=== PATIENT | female | born 1995 | race Two or more races ===

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

== ENCOUNTER → 2017-03-05 | Outpatient (CLI) | payer BC, MEDICAID ==
[2017-03-05 12:06] LABS: ESTRADIOL < 19.0 PG/ML; FOLLICLE STIMULATING HORMONE 7.4 mIU/mL
[2017-03-05 12:13] LABS: ANION GAP 7 MEQ/L (8-16); BLOOD UREA NITROGEN 14 MG/DL (7-18); CALCIUM LEVEL 9.3 MG/DL (8.5-10.1); CARBON DIOXIDE LEVEL 29 MEQ/L (21-32); CHLORIDE LEVEL 101 MEQ/L (98-107); CREATININE FOR GFR 0.55 MG/DL (0.55-1.02); GLUCOSE, FASTING 79 MG/DL (70-105); POTASSIUM SERUM 4.4 MEQ/L (3.5-5.1); SODIUM LEVEL 137 MEQ/L (136-145)
== END ==
LOC: M LABDRAW1 08:36
PROVIDERS: ATTEND Medical Genetics Clinical Genetics (M.D.)
DX: E23.0 Hypopituitarism (principal); E23.6 Other disorders of pituitary gland; E28.39 Other primary ovarian failure; Q87.1 Congenital malformation syndromes predominantly associated with short stature

== ENCOUNTER → 2017-03-05 | Outpatient (REF) | payer BC, MEDICAID | LOC: M SFHCLERA 14:24 | PROVIDERS: ATTEND Nurse Practitioner Family | DX: R53.81 Other malaise (principal) ==

== ENCOUNTER → 2018-05-02 | Outpatient (CLI) | payer MEDICARE, MEDICAID ==
[2018-05-02 14:16] LABS: BLOOD UREA NITROGEN 8 MG/DL (7-18); CALCIUM LEVEL 9.9 MG/DL (8.5-10.1); CARBON DIOXIDE LEVEL 26 MEQ/L (21-32); CHLORIDE LEVEL 101 MEQ/L (98-107); CREATININE FOR GFR 0.58 MG/DL (0.55-1.30); FREE T4 1.12 NG/DL (0.76-1.46); GLOMERULAR FILTRATION RATE > 60.0 (>60); GLUCOSE, FASTING 79 MG/DL (70-100); SODIUM LEVEL 138 MEQ/L (136-145)
[2018-05-02 14:24] LABS: HEMOGLOBIN A1c 5.3 %
== END ==
LOC: M LAB 12:41
PROVIDERS: ATTEND Medical Genetics Clinical Genetics (M.D.)
DX: Q87.1 Congenital malformation syndromes predominantly associated with short stature (principal); E23.0 Hypopituitarism

== ENCOUNTER → 2018-10-19 | Outpatient (REF) | payer MEDICARE, MEDICAID | LOC: M LAB REF 18:37 | PROVIDERS: ATTEND Physician Assistant | DX: N39.0 Urinary tract infection, site not specified (principal) ==

== ENCOUNTER → 2019-05-25 | Outpatient (CLI) | payer MEDICARE, BC, MEDICAID ==
[2019-05-25 14:24] LABS: BASO % 0.6 % (0.0-1.0); EOS # 0.1 10^3/uL (0.0-0.5); EOS % 1.6 % (0.0-3.0); HEMATOCRIT 40.2 % (36.0-47.0); HEMOGLOBIN 12.2 g/dl (12.0-15.5); LYMPH # 2.6 10^3/uL (1.5-5.0); LYMPH % 40.3 % (24.0-44.0); MEAN CORPUSCULAR HEMOGLOBIN 28.8 pg (27.0-33.0); MEAN CORPUSCULAR HGB CONC 30.3 g/dl (32.0-36.5); MEAN CORPUSCULAR VOLUME 94.8 fl (80.0-96.0); MONO # 0.4 10^3/uL (0.0-0.8); MONO % 6.8 % (0.0-5.0); NEUTROPHILS # 3.2 10^3/uL (1.5-8.5); NEUTROPHILS % 50.4 % (36.0-66.0); PLATELET COUNT, AUTOMATED 201 10^3/uL (150-450); RED BLOOD COUNT 4.24 10^6/uL (4.00-5.40); WHITE BLOOD COUNT 6.4 10^3/uL (4.0-10.0)
[2019-05-25 15:06] LABS: ALBUMIN 3.8 GM/DL (3.2-5.2); ALT/SGPT 22 U/L (12-78); BILIRUBIN,TOTAL 0.3 MG/DL (0.2-1.0); BLOOD UREA NITROGEN 8 MG/DL (7-18); CALCIUM LEVEL 8.8 MG/DL (8.5-10.1); CARBON DIOXIDE LEVEL 27 MEQ/L (21-32); CHLORIDE LEVEL 104 MEQ/L (98-107); CREATININE FOR GFR 0.49 MG/DL (0.55-1.30); FREE T4 0.92 NG/DL (0.76-1.46); GLOMERULAR FILTRATION RATE > 60.0 (>60); GLUCOSE, FASTING 79 MG/DL (70-100); POTASSIUM SERUM 4.4 MEQ/L (3.5-5.1); SODIUM LEVEL 137 MEQ/L (136-145); THYROXINE (T4) 8.7 UG/DL (4.5-12.0); TOTAL PROTEIN 7.5 GM/DL (6.4-8.2)
[2019-05-26 10:46] LABS: TOTAL 25(OH) VITAMIN D 30.3 NG/ML (30.0-100.0)
[2019-05-26 13:11] LABS: LUTEINIZING HORMONE 4.1 mIU/mL
[2019-05-30 00:06] LABS: INS GRTH FACTOR BINDING PROT 3 3948 ug/L (2855-6559); INSULIN LEVEL 5.7 uIU/mL (2.6-24.9); SEX HORMONE BINDING GLOBULIN 14.4 nmol/L (24.6-122.0)
== END ==
LOC: M LAB 12:05
PROVIDERS: ATTEND Medical Genetics Clinical Genetics (M.D.)
DX: Q87.19 Other congenital malformation syndromes predominantly associated with short stature (principal); E23.0 Hypopituitarism

== ENCOUNTER → 2020-02-29 | Outpatient (CLI) | payer MEDICARE, MEDICAID ==
--- NOTE | 2020-02-29 14:11 | DEXA ---
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 COMPARISON: November 07, 2018 and September 04, 2014.. TECHNIQUE: Bone density was measured using dual-energy x-ray absorptionmetry (DEXA). FINDINGS: AP SPINE L1-L4 BMD 1.061 g/cm2 Young Adult T-Score -1.1 Age Matched Z-Score -1.1. LT FEMUR, TOTAL BMD 1.081 g/cm2 Young Adult T-Score 0.6 Age Matched Z-Score 0.6. LT NECK BMD -1.089 g/cm2 Young Adult T-Score 0.4 Age Matched Z-Score 0.3. RT FEMUR, TOTAL BMD 1.078 g/cm2 Young Adult T-Score 0.6 Age Matched Z-Score 0.5. RT NECK BMD 1.078 g/cm2 Young Adult T-Score 0.3 Age Matched Z-Score 0.2. IMPRESSION: There is low bone density of the spine. There is normal bone density of the left hip. There is normal bone density of the right hip. The density of the spine has decreased 1.7% since the initial exam on September 04, 2014. The density of the spine decreased 2.9% since most recent exam on November 07, 2018. The density of the left hip has increased 0.7% since initial exam on September 04, 2014. The density of the left hip has decreased 0.1% since most recent exam on November 07, 2018. The density of the right hip has decrease 3.4% since the initial exam on September 04, 2014. The density of the right hip has decreased 2.1% since the most recent exam on November 07, 2018. FOLLOW-UP: Recommendation for the next bone density exam: 2 years. <Electronically signed by Delon Elizalde > 02/29/20 [id number]
== END ==
LOC: M WHC 10:31
PROVIDERS: ATTEND Medical Genetics Clinical Genetics (M.D.)
DX: Q87.11 Prader-Willi syndrome (principal); E55.9 Vitamin D deficiency, unspecified; E23.0 Hypopituitarism; M85.88 Other specified disorders of bone density and structure, other site

== ENCOUNTER → 2020-06-12 | Outpatient (CLI) | payer MEDICARE, MEDICAID ==
[2020-06-12 10:21] LABS: BASO % 0.6 % (0.0-1.0); EOS # 0.1 10^3/uL (0.0-0.5); EOS % 1.1 % (0.0-3.0); HEMOGLOBIN 11.8 g/dl (12.0-15.5); LYMPH # 1.8 10^3/uL (1.5-5.0); LYMPH % 34.6 % (24.0-44.0); MEAN CORPUSCULAR HEMOGLOBIN 29.2 pg (27.0-33.0); MEAN CORPUSCULAR HGB CONC 30.3 g/dl (32.0-36.5); MEAN CORPUSCULAR VOLUME 96.5 fl (80.0-96.0); MONO # 0.4 10^3/uL (0.0-0.8); MONO % 7.2 % (2.0-8.0); NEUTROPHILS % 56.1 % (36.0-66.0); PLATELET COUNT, AUTOMATED 255 10^3/uL (150-450); RED BLOOD COUNT 4.04 10^6/uL (4.00-5.40); WHITE BLOOD COUNT 5.3 10^3/uL (4.0-10.0)
[2020-06-12 10:49] LABS: FREE T4 1.07 NG/DL (0.76-1.46); THYROID STIMULATING HORMONE 2.11 uIU/ML (0.358-3.740); THYROXINE (T4) 10.8 UG/DL (4.5-12.0)
[2020-06-12 10:50] LABS: CORTISOL AM 10.1 UG/DL (4.3-22.4); LUTEINIZING HORMONE 1.5 mIU/mL
[2020-06-17 14:11] LABS: ADRENOCORTICOTROPHIC HORMONE 12.8 pg/mL (7.2-63.3); INS GRTH FACTOR BINDING PROT 3 4051 ug/L (2855-6559); INSULIN LEVEL 2.3 uIU/mL (2.6-24.9); SEX HORMONE BINDING GLOBULIN 45.4 nmol/L (24.6-122.0); SOMATOMEDIN-C INSULIN GROWTH 256 ng/mL (101-347); TESTOSTERONE FREE (DIRECT) 0.4 pg/mL (0.0-4.2)
== END ==
LOC: M LAB 09:24
PROVIDERS: ATTEND Medical Genetics Clinical Genetics (M.D.)
DX: Q87.11 Prader-Willi syndrome (principal); E23.0 Hypopituitarism; E55.9 Vitamin D deficiency, unspecified
CPT/HCPCS: 36415; 82024; 82533; 82670; 82679; 83001; 83002; 83519; 83525; 84270; 84305; 84402; 84403; 84439; 84443; 85025; G0463

== ENCOUNTER → 2020-06-24 | Outpatient (CLI) | payer MEDICARE, MEDICAID ==
--- NOTE | 2020-06-24 09:25 | REP ---
INDICATION: N63.10 RT BREAST LUMP 10:00. COMPARISON: None. TECHNIQUE: Targeted right breast sonography is performed in the area the patient's palpable lump 10 o'clock position. FINDINGS: Heterogeneous fibroglandular background echotexture is seen. No cyst, mass, architectural distortion or other suspicious abnormality is seen. IMPRESSION: BI-RADS category 1-findings. Clinical follow-up is advised. This negative report should not dissuade 1 from biopsy of a palpable lump depending on his clinical characteristics. This patient's estimated Tyrer-Cuzick lifetime risk assessment for breast cancer is 12.2%. <Electronically signed by Delon Elizalde > 06/24/20 [id number]
== END ==
LOC: M WHC 06:59
PROVIDERS: ATTEND Nurse Practitioner Family
DX: N63.11 Unspecified lump in the right breast, upper outer quadrant (principal)

== ENCOUNTER → 2020-09-06 | Outpatient (CLI) | payer MEDICARE, MEDICAID ==
[~2020-09-06] MED LIST: PROHANCE 279.3MG/ML 15ML VIAL As Ordered ONE
--- NOTE | 2020-09-06 10:17 | REP ---
INDICATION: PHIL GARCIA. Palpable lump right breast. COMPARISON: Ultrasound 06/24/2020. TECHNIQUE: Three Lilli MRI imaging was performed with a dedicated breast coil. Axial, coronal, and sagittal T1 and T2 weighted scans were obtained with and without fat saturation in the usual fashion. The study includes dynamically acquired post gadolinium-enhanced imaging with image subtraction. Maximum intensity projection and multi planar reformation imaging is included as well. This study is interpreted with the aid of [employer], an FDA approved computer aided detection (CAD) software program, on a dedicated breast MRI workstation. The gadolinium enhancement dose is 12 mL of intravenous ProHance. FINDINGS: There is an extreme parenchymal pattern in both breasts, right breast is mildly larger than the left. No significant cystic change is seen in either breast. There is no axillary adenopathy. There is very mild background parenchymal enhancement. There is no suspicious enhancing mass or morphologic abnormality. IMPRESSION: BI-RADS category 1, negative bilateral breast MRI. No suspicious enhancing mass or morphologic abnormality. <Electronically signed by Solo Luna > 09/06/20 [id number]
== END ==
LOC: M RAD 08:20
PROVIDERS: ATTEND Surgery
DX: N63.10 Unspecified lump in the right breast, unspecified quadrant (principal)
CPT/HCPCS: A9576; C8908

== ENCOUNTER → 2020-10-22 | Outpatient (REF) | payer MEDICARE, OTHER | LOC: M WUC 19:58 | PROVIDERS: ATTEND Nurse Practitioner Family | DX: R35.0 Frequency of micturition (principal) ==

== ENCOUNTER → 2020-12-26 | Outpatient (REF) | payer MEDICARE, MEDICAID | LOC: M LAB REF 17:19 | PROVIDERS: ATTEND Physician Assistant | DX: B35.1 Tinea unguium (principal) ==

== ENCOUNTER → 2022-02-06 | Outpatient (REF) | payer MEDICARE, MEDICAID | LOC: M LAB REF 12:29 | PROVIDERS: ATTEND Student in an Organized Health Care Education/Training Program | DX: R30.0 Dysuria (principal) ==

== ENCOUNTER → 2022-06-25 | Outpatient (CLI) | payer MEDICARE, MEDICAID ==
[2022-06-25 14:19] LABS: BASO % 0.3 % (0.0-1.0); EOS # 0.1 10^3/uL (0.0-0.5); EOS % 2.1 % (0.0-3.0); HEMOGLOBIN 13.6 g/dl (12.0-15.5); LYMPH # 1.2 10^3/uL (1.5-5.0); LYMPH % 30.4 % (24.0-44.0); MEAN CORPUSCULAR HEMOGLOBIN 30.6 pg (27.0-33.0); MEAN CORPUSCULAR HGB CONC 30.9 g/dl (32.0-36.5); MEAN CORPUSCULAR VOLUME 99.1 fl (80.0-96.0); MONO # 0.4 10^3/uL (0.0-0.8); NEUTROPHILS # 2.1 10^3/uL (1.5-8.5); NEUTROPHILS % 55.7 % (36.0-66.0); PLATELET COUNT, AUTOMATED 277 10^3/uL (150-450); RED BLOOD COUNT 4.44 10^6/uL (4.00-5.40); WHITE BLOOD COUNT 3.8 10^3/uL (4.0-10.0)
[2022-06-25 14:41] LABS: CORTISOL AM 14.1 UG/DL (4.3-22.4)
[2022-06-25 14:42] LABS: FREE T4 1.09 NG/DL (0.89-1.76); THYROID STIMULATING HORMONE 2.279 uIU/ML (0.55-4.78); THYROXINE (T4) 16.1 UG/DL (4.5-10.9)
[2022-06-25 14:43] LABS: IRON (FE) 17 UG/DL (50-170); PERCENT SATURATION 4.3 % (13.2-45.0); TOTAL IRON BINDING CAPACITY 398 UG/DL (250-425)
[2022-06-25 14:44] LABS: FOLLICLE STIMULATING HORMONE 3.3 mIU/ML; LUTEINIZING HORMONE 2.1 mIU/ML
[2022-06-25 14:45] LABS: ESTRADIOL < 19.0 PG/ML
[2022-06-25 14:46] LABS: TOTAL 25(OH) VITAMIN D 59.5 NG/ML (20.0-100.0)
[2022-06-30 06:08] LABS: DEHYDROEPIANDROSTERONE UNCONJ 52 ng/dL (31-701); ESTRONE SERUM 43 pg/mL (27-231); INS GRTH FACTOR BINDING PROT 3 3408 ug/L (2855-6559); SEX HORMONE BINDING GLOBULIN 99.8 nmol/L (24.6-122.0); SOMATOMEDIN-C INSULIN GROWTH 243 ng/mL (101-347); TESTOSTERONE FREE (DIRECT) 0.6 pg/mL (0.0-4.2)
== END ==
LOC: M PLALAB 09:56
PROVIDERS: ATTEND Medical Genetics Clinical Genetics (M.D.)
DX: E28.39 Other primary ovarian failure (principal); Q87.11 Prader-Willi syndrome

== ENCOUNTER → 2022-06-25 | Outpatient (CLI) | payer MEDICARE, MEDICAID | LOC: M WHC 09:11 | PROVIDERS: ATTEND Medical Genetics Clinical Genetics (M.D.) | DX: Q87.11 Prader-Willi syndrome (principal); E23.0 Hypopituitarism; E28.39 Other primary ovarian failure ==

== ENCOUNTER 2022-11-13 07:14 | Day surgery (SDC) | payer MEDICARE, MEDICAID ==
[~2022-11-13] VITALS: Ht 167.6 cm; Wt 59.8 kg
[~2022-11-13 07:14] MED LIST changes: +AMPICILLIN SOD/SULBACTAM SOD 3 GM in D5W MINI-BAG PLUS 100 ML IV ONE; +D3 S1CAP3 PO; +ELINTAB PO; +FLUC150T9 PO; +IRON1TAB2 PO; +MIRA3350 PO; -PROHANCE 279.3MG/ML 15ML VIAL As Ordered ONE; +[UNRECOGNIZED DRUG - CODE] SC
[2022-11-13] MEDS ORDERED: LR 1,000 ML IV SCH ×2 (07:20→10:30)
[2022-11-13] MEDS ORDERED: SUGAMMADEX SODIUM 500 MG/5 ML VIAL (BRIDION) As Ordered ONE (07:54)
[2022-11-13] MEDS ORDERED: LIDOCAINE 2% 100MG/5ML SDV (FOR ANES.) As Ordered ONE (07:54)
[2022-11-13] MEDS ORDERED: propofoL 200 MG/20 ML VIAL As Ordered ONE (07:54)
[2022-11-13] MEDS ORDERED: ROCURONIUM BROMIDE 50MG/5ML VIAL As Ordered ONE (07:54)
[2022-11-13] MEDS ORDERED: ONDANSETRON 4MG 2ML VIAL As Ordered ONE (07:54)
[2022-11-13] MEDS ORDERED: fentaNYL 100 MCG/2 ML INJECTION As Ordered ONE (08:03)
[2022-11-13] MEDS ORDERED: MIDAZOLAM INJ 2MG/2ML VIAL As Ordered ONE (08:03)
[2022-11-13] MEDS ORDERED: CHLORHEXIDINE GLUCONATE 0.12 % 15ML UDC (PERIDEX ORAL RINSE) As Ordered ONE (09:10)
[2022-11-13] MEDS ORDERED: LIDOCAINE 2% W/ EPINEPHRINE 1.7 ML DENTAL INJ As Ordered ONE (09:11)
[2022-11-13] MEDS ORDERED: ACETAMINOPHEN 1000MG 100ML IV BAG As Ordered ONE (09:57)
[2022-11-13] MEDS ORDERED: oxyCODONE 5MG TAB PO PRN (10:30)
[2022-11-13] MEDS ORDERED: HYDROMORPHONE HCL 0.5 MG/ 0.5 ML SYRINGE IV PRN (10:30)
[2022-11-13] MEDS ORDERED: ONDANSETRON 4MG 2ML VIAL IV PRN (10:30)
[2022-11-13] MEDS ORDERED: fentaNYL 100 MCG/2 ML INJECTION IV PRN (10:30)
[2022-11-13 11:40] VITALS: BP 125/86; TEMP 98.1; O2SAT 93
== END 2022-11-13 12:17 | disposition home or self-care (01) ==
LOC: M SDC 07:14
PROVIDERS: ATTEND Dentist
DX: K02.9 Dental caries, unspecified (principal); D64.9 Anemia, unspecified; Q87.11 Prader-Willi syndrome; F79 Unspecified intellectual disabilities; Z88.2 Allergy status to sulfonamides; Z88.8 Allergy status to other drugs, medicaments and biological substances; Z79.899 Other long term (current) drug therapy
CPT/HCPCS: 41899; 81025; 88300; C9290; J0131; J0295; J1100; J2250; J2405; J3010

== ENCOUNTER → 2022-12-25 | Outpatient (CLI) | payer MEDICARE, MEDICAID ==
[~2022-12-25] MED LIST changes: -AMPICILLIN SOD/SULBACTAM SOD 3 GM in D5W MINI-BAG PLUS 100 ML IV ONE
[2022-12-25 14:21] LABS: BLOOD UREA NITROGEN 8 MG/DL (9-23); CARBON DIOXIDE LEVEL 27 MMOL/L (20-31); CHLORIDE LEVEL 106 MMOL/L (98-107); CREATININE FOR GFR 0.57 MG/DL (0.55-1.30); GLOMERULAR FILTRATION RATE > 60.0 (>60); GLUCOSE, FASTING 88 MG/DL (60-100); IRON (FE) 62 UG/DL (50-170); POTASSIUM SERUM 4.5 MMOL/L (3.5-5.1); SODIUM LEVEL 141 MMOL/L (136-145)
[2022-12-25 14:22] LABS: EOS # 0.1 10^3/uL (0.0-0.5); HEMATOCRIT 40.1 % (36.0-47.0); HEMOGLOBIN 12.6 g/dl (12.0-15.5); LYMPH # 1.7 10^3/uL (1.5-5.0); LYMPH % 42.1 % (24.0-44.0); MEAN CORPUSCULAR HEMOGLOBIN 31.7 pg (27.0-33.0); MEAN CORPUSCULAR HGB CONC 31.4 g/dl (32.0-36.5); MONO # 0.3 10^3/uL (0.0-0.8); MONO % 6.3 % (2.0-8.0); NEUTROPHILS # 1.9 10^3/uL (1.5-8.5); NEUTROPHILS % 48.3 % (36.0-66.0); PERCENT SATURATION 17.7 % (13.2-45.0); PLATELET COUNT, AUTOMATED 240 10^3/uL (150-450); RED BLOOD COUNT 3.97 10^6/uL (4.00-5.40); THYROID STIMULATING HORMONE 2.203 uIU/ML (0.55-4.78); THYROXINE (T4) 10.9 UG/DL (4.5-10.9); TOTAL 25(OH) VITAMIN D 56.6 NG/ML (20.0-100.0); TOTAL IRON BINDING CAPACITY 351 UG/DL (250-425); WHITE BLOOD COUNT 3.9 10^3/uL (4.0-10.0)
[2022-12-25 14:23] LABS: ESTRADIOL 19.1 PG/ML; FOLLICLE STIMULATING HORMONE 0.9 mIU/ML; LUTEINIZING HORMONE < 0.1 mIU/ML; PROLACTIN 9.59 NG/ML
[2022-12-25 14:24] LABS: FREE T4 0.92 NG/DL (0.89-1.76); TESTOSTERONE 12 NG/DL (14-76)
[2022-12-25 14:29] LABS: THYROGLOBULIN ANTIBODY < 15.0 U/ML (<60.0)
== END ==
LOC: M PLALAB 09:50
PROVIDERS: ATTEND Medical Genetics Clinical Genetics (M.D.)
DX: Q87.11 Prader-Willi syndrome (principal); D50.9 Iron deficiency anemia, unspecified; E07.9 Disorder of thyroid, unspecified

== ENCOUNTER → 2023-01-04 | Outpatient (REF) | payer MEDICARE, MEDICAID | LOC: M SFHCDERM 09:00 | PROVIDERS: ATTEND Physician Assistant | DX: B35.1 Tinea unguium (principal) ==

== ENCOUNTER → 2023-02-18 | Outpatient (CLI) | payer MEDICARE, MEDICAID ==
[2023-02-18 14:11] LABS: ALBUMIN 3.8 G/DL (3.2-5.2); ALKALINE PHOSPHATASE 67 U/L (46-116); ALT/SGPT 20 U/L (7.0-40); AST/SGOT 21 U/L (<34); BILIRUBIN,TOTAL 0.5 MG/DL (0.3-1.2); BLOOD UREA NITROGEN 7 MG/DL (9-23); CALCIUM LEVEL 9.4 MG/DL (8.5-10.1); CARBON DIOXIDE LEVEL 26 MMOL/L (20-31); CHLORIDE LEVEL 106 MMOL/L (98-107); GLOMERULAR FILTRATION RATE > 60.0 (>60); GLUCOSE, FASTING 105 MG/DL (60-100); POTASSIUM SERUM 4.5 MMOL/L (3.5-5.1); SODIUM LEVEL 142 MMOL/L (136-145); TOTAL PROTEIN 7.4 G/DL (5.7-8.2)
== END ==
LOC: M PLALAB 11:26
PROVIDERS: ATTEND Physician Assistant
DX: B35.1 Tinea unguium (principal)

== ENCOUNTER → 2023-12-15 | Outpatient (CLI) | payer MEDICARE, MEDICAID | LOC: M WHC 10-25 13:42 | PROVIDERS: ATTEND Medical Genetics Clinical Genetics (M.D.) | DX: Q87.11 Prader-Willi syndrome (principal); E28.0 Estrogen excess; E28.39 Other primary ovarian failure; E23.0 Hypopituitarism; E03.9 Hypothyroidism, unspecified; E61.1 Iron deficiency; M40.00 Postural kyphosis, site unspecified; Z79.899 Other long term (current) drug therapy ==

== ENCOUNTER → 2023-12-15 | Outpatient (CLI) | payer MEDICARE, MEDICAID ==
[2023-12-15 12:14] LABS: EOS # 0.1 10^3/uL (0.0-0.5); EOS % 2.4 % (0.0-3.0); HEMATOCRIT 41.1 % (36.0-47.0); HEMOGLOBIN 13.2 g/dl (12.0-15.5); LYMPH # 1.8 10^3/uL (1.5-5.0); LYMPH % 48.2 % (24.0-44.0); MEAN CORPUSCULAR HEMOGLOBIN 32.4 pg (27.0-33.0); MEAN CORPUSCULAR HGB CONC 32.1 g/dl (32.0-36.5); MONO # 0.3 10^3/uL (0.0-0.8); MONO % 8.1 % (2.0-8.0); NEUTROPHILS # 1.5 10^3/uL (1.5-8.5); PLATELET COUNT, AUTOMATED 262 10^3/uL (150-450); RED BLOOD COUNT 4.07 10^6/uL (4.00-5.40); WHITE BLOOD COUNT 3.8 10^3/uL (4.0-10.0)
[2023-12-15 12:40] LABS: BLOOD UREA NITROGEN 8 MG/DL (9-23); CALCIUM LEVEL 9.3 MG/DL (8.5-10.1); CARBON DIOXIDE LEVEL 30 MMOL/L (20-31); CHLORIDE LEVEL 105 MMOL/L (98-107); CREATININE FOR GFR 0.59 MG/DL (0.55-1.30); FREE T4 1.18 NG/DL (0.89-1.76); GLOMERULAR FILTRATION RATE > 60.0 (>60); GLUCOSE, FASTING 74 MG/DL (60-100); IRON (FE) 40 UG/DL (50-170); POTASSIUM SERUM 4.1 MMOL/L (3.5-5.1); SODIUM LEVEL 141 MMOL/L (136-145); THYROID STIMULATING HORMONE 3.299 uIU/ML (0.55-4.78); THYROXINE (T4) 11.8 UG/DL (4.5-10.9)
[2023-12-15 12:41] LABS: PROLACTIN 8.07 NG/ML
[2023-12-15 12:42] LABS: ESTRADIOL < 19.0 PG/ML; FOLLICLE STIMULATING HORMONE 5.8 mIU/ML; TESTOSTERONE 11 NG/DL (14-76); TOTAL 25(OH) VITAMIN D 45.5 NG/ML (20.0-100.0)
[2023-12-15 12:49] LABS: THYROGLOBULIN ANTIBODY < 15.0 U/ML (<60.0)
[2023-12-16 12:06] LABS: INSULIN LEVEL 2.8 uIU/mL (<=18.4)
== END ==
LOC: M PLALAB 08:37
PROVIDERS: ATTEND Medical Genetics Clinical Genetics (M.D.)
DX: Q87.11 Prader-Willi syndrome (principal); E23.0 Hypopituitarism; E03.9 Hypothyroidism, unspecified; E28.39 Other primary ovarian failure; E61.1 Iron deficiency; M40.00 Postural kyphosis, site unspecified